=== PATIENT | male | born 1965 | race Caucasian/White ===

== ENCOUNTER 2016-09-19 12:45 | Outpatient (CLI) | payer MEDICARE, OTHER ==
[2016-08-10 12:46] VITALS: BP 123/99
== END 2016-09-19 12:46 ==
LOC: POD 12:45
PROVIDERS: ATTEND Podiatrist
DX: M76.61 Achilles tendinitis, right leg (principal); M76.62 Achilles tendinitis, left leg; M77.41 Metatarsalgia, right foot; M77.42 Metatarsalgia, left foot
CPT/HCPCS: G0463

== ENCOUNTER 2016-10-17 14:08 | Outpatient (CLI) | payer MEDICARE, MEDICAID ==
[2016-08-10 12:46] VITALS: BP 123/99
== END 2016-10-17 14:10 ==
LOC: POD 14:08
PROVIDERS: ATTEND Podiatrist
DX: M76.61 Achilles tendinitis, right leg (principal); M76.62 Achilles tendinitis, left leg
CPT/HCPCS: G0463

== ENCOUNTER 2016-10-22 11:50 | Emergency (ER) | payer MEDICARE, OTHER ==
[2016-10-22 12:18] LABS: BASOPHILS % 0.5 (0.0-1.5); EOSINOPHILS % 3.6 % (0.0-6.8); LYMPHOCYTES # 1.2 # k/uL (0.6-4.0); MEAN CORPUSCULAR HEMOGLOBIN 30.5 pg (28.0-34.0); MONOCYTES # 0.3 # k/uL (0.0-0.9); MONOCYTES % 6.3 % (0.0-11.0); NEUTROPHILS # 3.5 # k/uL (1.4-7.7)
--- NOTE | 2016-10-22 12:30 | ED Physician Documentation ---
Chest Pain - HISTORIAN Historian: patient - HPI Stated Complaint: Chest Pain Chief Complaint: Chest Pain Additional Information: genl chest discomfort ale rt axilla ext across chest - no other apparent sig radiation-"made worse by anxiety". pt had similar few yrs ago no pos findings. this episode onset last pm. perhaps made worse by exertion-ale by anxiety. no sob or diaphoresis Timing: gradual onset Duration: constant, waxing, waning Last known Well Date: 10/22/16 Last Known Well Time: 16:00 Context: emotional upset Severity: mild, moderate Quality: pressure, tightness Chest Pain Signs/Symptoms: denies: nausea, vomiting, diaphoresis Relieved By: nothing - ROS CONST: none MS/LYMPH: none GI/: none EYES/ENT: none SKIN/ENDO: none NEURO/PSYCH: anxiety - PAST HX CT risk factors: no pertinent history Neuro deficit: other (fibromyalgia aspergers autism bi polar leg neuropathy ch fatigue aforementioned chest [place] ale w anxiety) GI disease: none Lung disease: none Allergies/Adverse Reactions: Allergies Allergy/AdvReac Type Severity Reaction Status Date / Time aspirin Allergy Verified 10/22/16 12:14 ibuprofen [From Motrin] Allergy Verified 10/22/16 12:14 Penicillins Allergy anaphalacti Verified 10/22/16 12:14 c Home Medications: Ambulatory Orders Medication Instructions Recorded Hydrochlorothiazide 25 mg PO DAILY 02/22/16 - SOCIAL HX Smoking History: non-smoker Alcohol Use: none Drug Use: none - FAMILY HX Family HX: CAD under 55 (f/l/w-heart dx in past m/l dm/fibromyalgia/neuropathy ) - VITAL SIGNS Vital Signs: Vital Signs Temp Pulse Resp BP Pulse Ox 82 16 149/105 98 10/22/16 11:50 10/22/16 11:50 10/22/16 11:50 10/22/16 11:50 ED Results Lab/Radiology - Lab Results Lab Results: Lab Results 10/22/16 12:15 WBC 5.40 K/ul K/ul (4.00-12.00) RBC 5.03 M/ul M/ul (3.90-5.20) Hgb 15.3 g/dL g/dL (12.0-18.0) Hct 44.9 % % (37.0-53.0) MCV 89.4 fl fl (80.0-100.0) MCH 30.5 pg pg (28.0-34.0) MCHC 34.1 g/dL g/dL (30.0-36.0) RDW 12.9 % % (11.3-14.3) Plt Count 173 K/mm3 K/mm3 (130-400) Neut % (Auto) 65.0 % % (39.0-79.0) Lymph % (Auto) 23.3 % % (16.0-50.0) Sherman % (Auto) 6.3 % % (0.0-11.0) Eos % (Auto) 3.6 % % (0.0-6.8) Baso % (Auto) 0.5 (0.0-1.5) Neut # 3.5 # k/uL # k/uL (1.4-7.7) Lymph # 1.2 # k/uL # k/uL (0.6-4.0) Sherman # 0.3 # k/uL # k/uL (0.0-0.9) Eos # 0.2 # k/uL # k/uL (0.0-0.6) Baso # 0.0 # k/uL # k/uL (0.0-0.5) Reactive Lymphs % 1.3 % % (0.0-5.0) Reactive Lymphs # 0.1 # k/uL # k/uL (0.0-0.8) - Radiology Radiology Impressions: cxr=wnl-aorta normal size - Orders Orders: ED Orders Category Date Time Status Continuous EKG monitoring Q30M Care 10/22/16 12:10 Ordered Continuous Pulse Oximetry Q30M Care 10/22/16 12:[address] Saline Lock/IV NOW Care 10/22/16 12:10 Ordered CHEST 1 VIEW [RAD] Stat Exams 10/22/16 12:10 Ordered CBC/PLATELET/DIFF Routine Lab 10/22/16 12:10 Ordered CMP Routine Lab 10/22/16 12:10 Ordered CREATINE KINASE Routine Lab 10/22/16 12:10 Ordered TROPONIN I (cTnI) Stat Lab 10/22/16 12:10 Ordered Oxygen Daily Oxygen 10/22/16 12:15 Ordered EKG WITH COMPARISON Stat Ther 10/22/16 12:10 Ordered Chest Pain Physical Exam - EXAM General Appearance: mild distress, anxious EENT: eye inspection normal Neck: nml inspection, no carotid bruit. No: JVD present, lymphadenopathy Respiratory: no resp. distress, chest non-tender, nml breath sounds CVS: reg. rate & rhythm Abdomen: soft, non-tender Skin: warm/dry, normal color. No: cyanosis, diaphoresis, jaundice, mottled Extremities: non-tender, normal range of motion, no evidence of injury, no edema Neuro: oriented X3, motor nml, sensation nml, mood/affect nml, cognition normal Discharge Clincal Impression: Atypical chest pain Home Medications: Ambulatory Orders Hydrochlorothiazide 25 mg PO DAILY 02/22/16 Comments: home cpt - f/u w/pcp Condition: Good Disposition: 01 HOME, SELF-CARE Decision to Admit: NO Decision Time: 13:23
[2016-10-22 12:35] LABS: eGFR (African) > 60; eGFR (Non-African) > 60
[2016-10-22 13:29] VITALS: BP 116/86
--- NOTE | 2016-10-22 14:19 | Diagnostic Imaging Report ---
[facility] [address] [facility].[address] [address] Report Submission Date: Oct 22, 2016 12:50:06 PM ROSS FURNACE OPERATOR Patient Study Name: TIERA CLARK Date: Oct 22, 2016 12:26:26 PM ROSS FURNACE OPERATOR Modality Type: CR Gender: M Description: CHEST : 61 Institution: [facility] Physician MARY MAY - ER Chest, 1 view History: CHEST PAIN Findings: The heart size is normal. The lungs are clear. There is no pleural effusion or pneumothorax identified. The osseous structures are normal. Impression: 1. No acute pulmonary disease. Electronically signed on Oct 22, 2016 12:50:06 PM ROSS FURNACE OPERATOR by: Diego VALENZUELA
== END 2016-10-22 13:28 | disposition home or self-care (01) ==
LOC: ED 11:50
DX: R07.9 Chest pain, unspecified (principal)
CPT/HCPCS: 71010; 80053; 82550; 84484; 85025; S1016

== ENCOUNTER 2017-08-26 14:23 | Outpatient (CLI) | payer MEDICARE, OTHER ==
--- NOTE | 2017-08-26 15:17 | Diagnostic Imaging Report ---
[facility] [address] [facility] [address] [address] Report Submission Date: Aug 26, 2017 2:59:48 PM CHANGE DIRECTOR Patient Study Name: TIERA CLARK Date: Aug 26, 2017 2:42:11 PM CHANGE DIRECTOR Modality Type: CR Gender: M Description: LOWER EXTREMITY : 61 Institution[facility] Physician: [facility] Examination: Plain film foot History: Injury Findings: 3 views of the foot demonstrates normal cortical margins. No fracture or dislocation. mild degenerative disease 1st tarsometatarsal articulation. No soft tissue swelling. No joint effusion. Impression: No acute osseous process. Electronically signed on Aug 26, 2017 2:59:48 PM CHANGE DIRECTOR by: Yohannes VALENZUELA
== END 2017-08-26 14:24 ==
LOC: RAD 14:23
PROVIDERS: ATTEND Physician Assistant
DX: M79.671 Pain in right foot (principal)
CPT/HCPCS: 73630

== ENCOUNTER 2017-08-28 18:28 | Emergency (ER) | payer MEDICARE, OTHER ==
--- NOTE | 2017-08-28 18:30 | ED Physician Documentation ---
Foot Injury - HISTORIAN Historian: patient - HPI Stated Complaint: right ankle and foot pain Chief Complaint: Lower Extremity Injury Onset: hours (2) Where: home Severity: moderate Context: fall, twist Associated Symptoms:: swelling. denies: tingling, numbness distally, snapping sensation, popping sensation, unable to bear weight Modifying Factors:: pain on movement Further Comments: yes (states he went down the stairs and "missed" the last stair and twisted his ankle and foot and has pain to top of foot and right lateral ankle. He can move his ankle and foot but sensation is diminished due to neruopathy) - ROS CONST: no problems MS/SKIN/LYMPH: none - PAST HX Past History: other (Neuropathy ) Immunizations: referred to PCP - SOCIAL HX Smoking History: non-smoker Alcohol Use: none Drug Use: none - FAMILY HX Family History: none - VITAL SIGNS Vital Signs: Vital Signs Temp Pulse Resp BP Pulse Ox 116/86 10/22/16 13:28 - REVIEWED ASSESSMENTS Nursing Assessment Reviewed: Yes Vitals Reviewed: Yes <Azra Peck - Last Filed: 08/28/17 18:41> - VITAL SIGNS Vital Signs: Vital Signs Temp Pulse Resp BP Pulse Ox 96.9 F L 100 H 18 121/82 99 08/28/17 18:30 08/28/17 18:30 08/28/17 18:30 08/28/17 18:30 08/28/17 18:30 <Barrie Nick - Last Filed: 08/28/17 19:39> - PAST HX Allergies/Adverse Reactions: Allergies Allergy/AdvReac Type Severity Reaction Status Date / Time aspirin Allergy Verified 08/28/17 18:42 ibuprofen [From Motrin] Allergy Verified 08/28/17 18:42 Penicillins Allergy anaphalacti Verified 08/28/17 18:42 c Home Medications: Ambulatory Orders Medication Instructions Recorded Hydrochlorothiazide 25 mg PO DAILY 02/22/16 ED Results Lab/Radiology - Radiology Radiology Impressions: avulsion fracture superior portion navicular bone. But his pain is more diffuse. He can bear weight and usually walks with a cane anyway. - Orders Orders: ED Orders Category Date Time Status ANKLE 3 VIEWS OR MORE [RAD] Stat Exams 08/28/17 Ordered FOOT 3 VIEWS OR MORE [RAD] Stat Exams 08/28/17 Ordered <Barrie Nick - Last Filed: 08/28/17 19:39> Foot Injury Physical Exam - Physical Exam General Appearance: no acute distress Foot: right foot: bone tenderness (lateral side of ankle ), deformity (raised area on top of right foot ), pain, soft tissue tenderness, swelling, left foot: non-tender, normal inspection, no evidence of injury, bilateral foot: normal range of motion Ankle: right: bone tenderness, deformity, limited range of motion, pain, soft tissue tenderness, swelling, left: non-tender, normal inspection, no evidence of injury, bilateral: normal range of motion Gait: limited by pain Neuro: sensation nml Vascular: no vascular compromise Tendons: tendon function nml Leg/Knee/Thigh: No: uninjured above ankle Skin: intact Resp/CVS: chest non-tender, breath sounds nml, heart sounds nml <Azra Peck - Last Filed: 08/28/17 18:41> Discharge <Azra Peck - Last Filed: 08/28/17 18:41> Decision to Admit: NO Date of Decison to Admit: 08/28/17 Decision Time: 19:38 <Barrie Nick - Last Filed: 08/28/17 19:39> Clincal Impression: Navicular fracture of ankle Qualifiers: Encounter type: initial encounter Fracture type: closed Fracture alignment: nondisplaced Laterality: right Qualified Code(s): S92.254A - Nondisplaced fracture of navicular [scaphoid] of right foot, initial encounter for closed fracture Referrals: Raúl Patricia MD [Primary Care Provider] - 2 Days Condition: Stable Disposition: 01 HOME, SELF-CARE
--- NOTE | 2017-08-28 19:23 | Diagnostic Imaging Report ---
LISA MILLAN [facility] [address] [facility] [address] [address] Report Submission Date: Aug 28, 2017 7:21:16 PM RAILROAD MECHANIC Patient Study Name: TIERA CLARK Date: Aug 28, 2017 7:00:10 PM RAILROAD MECHANIC Modality Type: CR Gender: M Description: LOWER EXTREMITY : 61 Institution: [facility] Physician: LISA MILLAN Right foot 3 views Clinical history: Trauma Again noted evulsion fracture of the anterior superior corner the navicular tarsal bone. The rest of the foot is normal Impression: Fracture the navicular tarsal bone Electronically signed on Aug 28, 2017 7:21:16 PM RAILROAD MECHANIC by: Vinny VALENZUELA
--- NOTE | 2017-08-28 19:23 | Diagnostic Imaging Report ---
LISA MILLAN [facility] [address] [facility] [address] [address] Report Submission Date: Aug 28, 2017 7:19:46 PM [employer]VENIENCE RECYCLE CENTER TECH Patient Study Name: TIERA CLARK Date: Aug 28, 2017 6:57:00 PM [employer] TECH Modality Type: CR Gender: M Description: LOWER EXTREMITY : 61 Institution: [facility] Physician: LISA MILLAN Right ankle 3 views Clinical history: Trauma and fall There is what appears to be an avulsion fracture of the anterior superior corner of the navicular tarsal bone. The rest of the ankle is normal. Impression: 1 cm a avulsion fracture the anterosuperior corner of the navicular tarsal bone Electronically signed on Aug 28, 2017 7:19:46 PM [employer] TECH by: Vinny VALENZUELA
[2017-08-28 19:59] VITALS: BP 120/82
== END 2017-08-28 19:50 | disposition home or self-care (01) ==
LOC: ED 18:28
DX: S92.254A Nondisplaced fracture of navicular [scaphoid] of right foot, initial encounter for closed fracture (principal); W10.8XXA Fall (on) (from) other stairs and steps, initial encounter; Y92.009 Unspecified place in unspecified non-institutional (private) residence as the place of occurrence of the external cause
CPT/HCPCS: 73610; 73630; 99283

== ENCOUNTER 2018-02-09 12:00 | Outpatient (CLI) | payer MEDICARE, OTHER | END 2018-02-09 12:03 | LOC: LAB 12:00 | PROVIDERS: ATTEND Family Medicine | DX: M79.642 Pain in left hand (principal); M79.641 Pain in right hand; R60.9 Edema, unspecified; M13.0 Polyarthritis, unspecified | CPT/HCPCS: 36415; 85651; 86038; 86431 ==

== ENCOUNTER 2018-04-28 15:10 | Outpatient (CLI) | payer MEDICARE, OTHER ==
--- NOTE | 2018-04-28 18:45 | Diagnostic Imaging Report ---
JAMES CIFUENTES [facility] [address] [facility].[address] [address] Report Submission Date: Apr 28, 2018 3:39:56 PM CDT Patient Study Name: TIERA CLARK Date: Apr 28, 2018 3:13:01 PM CDT Modality Type: DX Gender: M Description: UPPER EXTREMITY : 61 Institution: [facility] Physician: JAMES CIFUENTES Bilateral hands History: Pain and stiffness Three views of the left hand demonstrate no osseous abnormalities. There are no significant degenerative findings. Three views of the right hand demonstrate no osseous abnormalities. There are no significant degenerative findings. Impression: No osseous abnormalities. Electronically signed on Apr 28, 2018 3:39:56 PM CDT by: Jolie VALENZUELA
== END 2018-04-28 15:12 ==
LOC: LAB 15:10
PROVIDERS: ATTEND Family Medicine
DX: M79.641 Pain in right hand (principal); M13.0 Polyarthritis, unspecified; M79.642 Pain in left hand
CPT/HCPCS: 36415; 85651; 86038; 86431

== ENCOUNTER 2018-06-10 07:29 | Emergency (ER) | payer MEDICARE, OTHER ==
[2018-06-10] MEDS ORDERED: ORPHENADRINE CITRATE 60 MG/2ML IM ONE (07:40)
[2018-06-10] MEDS ORDERED: KETOROLAC TROMETHAMINE 60 MG/2 ML VIAL IM ONE (07:40)
[2018-06-10 07:43] VITALS: BP 118/88
--- NOTE | 2018-06-10 07:55 | ED Physician Documentation ---
Low Back Pain - HISTORIAN Historian: patient - HPI Stated Complaint: LBP Chief Complaint: Low Back Pain/ Injury History: other (history of back spasms) Onset: other (yesterday) Duration: continues in ED Further Comments: yes (53 year old male patient walked to ER for treatment of his back spasms. Patient states he has a history spasms; lifted "a lot of heavy laundry yesterday" spasms started last night. Has used zanaflex with no improvement.) - ROS CONST: no problems CVS/RESP: none EYES/ENT: none MS/SKIN/LYMPH: none Neuro/Psych: none GI/: denies: abdominal pain - PAST HX Past History: back pain Other History: hypertension, other (back spasms) Allergies/Adverse Reactions: Allergies Allergy/AdvReac Type Severity Reaction Status Date / Time aspirin Allergy Verified 06/10/18 07:44 Penicillins Allergy anaphalacti Verified 06/10/18 07:44 c Home Medications: Ambulatory Orders Medication Instructions Recorded Hydrochlorothiazide 25 mg PO DAILY 02/22/16 Baclofen [Liorasal] 10 mg PO TID PRN #30 tablet 06/10/18 Ketorolac Tromethamine [Toradol] 10 mg PO TID #15 tablet 06/10/18 - SOCIAL HX Smoking History: non-smoker - FAMILY HX Family History: denies: none - VITAL SIGNS Vital Signs: Vital Signs Temp Pulse Resp BP Pulse Ox 114 H 16 118/88 96 06/10/18 08:26 06/10/18 08:26 06/10/18 08:26 06/10/18 07:29 - REVIEWED ASSESSMENTS Nursing Assessment Reviewed: Yes Vitals Reviewed: Yes ED Results Lab/Radiology - Orders Orders: ED Orders Category Date Time Status Ketorolac Tromethamine [Toradol] Med 06/10/18 07:40 Discontinued 60 mg IM NOW ONE Orphenadrine Citrate [Norflex] Med 06/10/18 07:40 Discontinued 60 mg IM NOW ONE Low Back Pain/Injury - Physical Exam General Appearance: mild distress EENT: eye inspection normal, ENT inspection normal, pharynx normal, no signs of dehydration, FER, no nystagmus, TM's nml Resp/CVS: chest non-tender, breath sounds nml, heart sounds nml, no resp. distress, lungs clear, reg. rate & rhythm Abdomen: non-tender, no organomegaly, no pulsatile mass Back: muscle spasm (lumbar and sacral), other (patient standing, will not sit or lie down for exam) Neuro/Psych: oriented x3, motor nml, sensation nml, bilat. doriflexion nml, reflexes nml, mood/affect nml Skin: normal color, warm/dry, NR, INT, PAL, DR Extremities: non-tender, normal range of motion, no evidence of injury, no edema, J, DIRECTOR STERILE PROCESSING Discharge Clincal Impression: Spasm of back muscles Prescriptions: Baclofen [Liorasal] 10 mg PO TID PRN #30 tablet PRN Reason: Spasms Ketorolac Tromethamine [Toradol] 10 mg PO TID #15 tablet Referrals: Raúl Patricia MD [Primary Care Provider] - 2 Days Additional Instructions: Ice Rest You may use Tylenol every 4hour as needed for pain. Limit your dose to less than 4 G per day. Do not take ibuprofen, aleve, naproxen or any other NSAID while you are on toradol. Condition: Stable Disposition: 01 HOME, SELF-CARE Decision to Admit: NO Decision Time: 07:54
== END 2018-06-10 08:05 | disposition home or self-care (01) ==
LOC: ED 07:29
DX: M62.830 Muscle spasm of back (principal)
CPT/HCPCS: J1885; J2360; 96372; 99284

== ENCOUNTER 2018-07-09 13:38 | Outpatient (CLI) | payer MEDICARE, OTHER ==
--- NOTE | 2018-07-13 10:17 | CONSULTATION REPORT ---
REFERRING PHYSICIAN: Dr. Raúl Patricia CONSULTING PHYSICIAN: Henok Parra MD Dear Dr. Patricia: HISTORY OF PRESENT ILLNESS: Thank you for referring Gideon Barton. This is an unfortunate 53-year-old white male with a long history of pain. He has had chronic low back pain associated with spasms. He has been extensively evaluated in the past. X-ray reports suggest scoliosis quite mild, probably triggered with spasm but, otherwise, unremarkable. He is coming to see me for pain all over. He tells me that he has previously been diagnosed with neuropathy, arthritis, Raynaud's, chronic fatigue, and fibromyalgia. He has tried and failed physical therapy. He has seen maybe he estimates 30 different physicians. More recently as of yesterday, he saw Neurology at the [facility] and he is to see them again in September. They had no answer for his discomfort. Presently, aside from his back pain, he has pain about his face, his ears, upper and lower back, across the scapulas, belly, left hip, knees, ankles, feet and hands, right shoulder. He has not noted any deformities. The pain appears to be worse with use, for example when driving. He cannot tell me whether he has pain or morning stiffness. As for his Raynaud's, it affects all his fingers. They usually turn a little red and sometimes white. His hands he feels are stiff, puffy, weak, burning knuckles, and sometimes some tingling. His forearms ache. He has had his back spasms and shoulder aching. His left hip starts to burn after prolonged sitting and it radiates into the buttocks, thighs, and bottom of his feet. His feet were stiff and swollen last month. His right foot still hurts from an old avulsion fracture. His eyes will get achy and blurry. His knees with get puffy and stiff. His ears are frequently congested and he has earaches and ringing. As for his abdomen, he feels he has colitis, IBS, diverticular disease, alternating constipation and foamy stools. However, he sometimes looses coordination and he will run into a door frame or hit his legs. He complains that his brain gets tired easily and it is hard to focus and sometimes even to read. He has difficulty watching TV, ads, and movies because too much music makes things too intense, too many flashing lights. Review of systems, he has recently put on 20 pounds. Again, fatigue and weakness and double and blurred vision, ringing in the ears, nosebleeds, runny nose, hoarseness, high blood pressure, occasional chest pain, swelling of the legs, a nonproductive cough, diarrhea, nodules, bumps, color changes of hands and feet in the cold, nonspecific rashes, headaches, dizziness, fainting, muscle spasms, hands sensitivity, night sweats, difficulty sleeping or falling asleep, swollen tender lymph nodes, and frequent sneezing. PAST MEDICAL HISTORY: As above, as well as: 1. A nervous breakdown. 2. Chronic headaches. 3. Hypertension. 4. Diverticular disease. 5. Asthma. 6. Chronic low back pain. PAST SURGICAL HISTORY: Cholecystectomy. PRESENT MEDICATIONS: 1. Triamterene/hydrochlorothiazide 37.5/25 mg daily. 2. Lisinopril 10 mg daily. 3. Baclofen as needed. ALLERGIES: 1. Penicillin. 2. Motrin. 3. Aspirin. SOCIAL HISTORY: He is . He does not smoke or drink. FAMILY HISTORY: Mom had diverticular disease, diabetes, hypertension, and reflux, as well as bursitis and lumbar spine spondylosis. His father retired from the [employer] with chronic fatigue syndrome. He also has peripheral neuropathy. He has had TIAs, hypothyroidism, hypertension, essential tremors, and MGUS, cardiac bypass, and cervical disc disease. PRIOR TREATMENTS: 1. Sulfasalazine for his colitis. 2. 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 PHYSICAL EXAMINATION: GENERAL: He is in no acute distress. He is using a cane but his gait is non- antalgic. VITAL SIGNS: Weight: 203. T: 97.5, BP: 150/89, R: 18, P: 82. Oxygen saturation is 95%. HEENT: External ears and nose are unremarkable. No mal or rash. No alopecia. NECK: No parotid swelling. LUNGS: Clear. No crackles or wheezing. HEART: Regular rate and rhythm. ABDOMEN: Soft and nontender. No organomegaly. VASCULAR: No edema or cyanosis. SKIN: Aside from some dryness, revealed no rashes. He has no nail pitting. PERIPHERAL JOINTS: The DIPs, PIPs, MCPs, and wrists showed no synovitis or tenderness. He is able to make a fist. He had some resistance to flexion and extension of his wrists but regained full range of motion once he relaxed. Elbows are unremarkable on flexion, extension, and pronation. Shoulders are unremarkable on abduction and rotation. Good range of motion at the hips, knees, ankles, and feet. No Achilles tendonitis. No gross foot deformities. IMPRESSION: Polyarthritis. PLAN: 1. I am going to look into his joint pain such as polyarthralgia and we will obtain AVISE testing looking for an autoimmune disorder that may explain his symptoms. However, I predict the testing will most likely be negative. 2. As for his back pain, etiology remains unclear. 3. If not already done so, I would refer the patient to cognitive behavior therapy, as well as a screening for depression and appropriate management after that. 4. I will call the patient with his results when they return. 5. I will see him back on a p.r.n. basis. cc: Dr. Raúl VALENZUELA
== END 2018-07-09 13:40 ==
LOC: RHEU 13:38
PROVIDERS: ATTEND Internal Medicine
DX: M13.88 Other specified arthritis, other site (principal); M54.5 Low back pain; Z87.81 Personal history of (healed) traumatic fracture
CPT/HCPCS: 99204; G0463

== ENCOUNTER 2018-07-14 09:42 | Outpatient (CLI) | payer MEDICARE, OTHER | END 2018-07-14 09:43 | LOC: LAB 09:42 | PROVIDERS: ATTEND Internal Medicine | DX: Z53.8 Procedure and treatment not carried out for other reasons (principal) | CPT/HCPCS: 36415 ==